=== PATIENT | female | born 1960 | race Caucasian/White ===

== ENCOUNTER 2016-12-28 17:15 | Emergency (ER) | payer SELFPAY ==
[2016-12-28 17:55] LABS: BASOPHILS 0.1 % (0-2); EOSINOPHILS 0.1 % (0-7); HEMATOCRIT 38.2 % (36.0-48.0); HEMOGLOBIN 12.9 g/dL (12-16); IMMATURE GRANULOCYTES 0.3 % (0-5); LYMPHOCYTES 11.4 % (15-50); MCH 33.1 pg (26.0-34.0); MCHC 33.8 g/dL (31.0-37.0); MCV 97.9 fL (80.0-100.0); MEAN PLATELET VOLUME 10.5 fL (7.4-10.4); MONOCYTES 3.5 % (2-11); NEUTROPHILS 84.6 % (40-80); PLATELET COUNT 321 10x3/uL (130-400); RDW 13.9 % (11.5-14.5); WBC 17.2 10x3/uL (4.8-10.8)
[2016-12-28 18:08] LABS: ALBUMIN 4.1 g/dL (3.4-5.0); ANION GAP 21.4 mmol/L (8-16); BILIRUBIN - TOTAL 0.37 mg/dL (0.2-1.3); CALCIUM 8.7 mg/dL (8.5-10.1); CARBON DIOXIDE 19.8 mmol/L (21.0-32.0); POTASSIUM - SERUM 3.2 mmol/L (3.5-5.1); PROTEIN - SERUM 7.7 g/dL (6.4-8.2)
[2016-12-28 18:55] LABS: APPEARANCE HAZY (CLEAR); BILIRUBIN NEGATIVE (NEGATIVE); COLOR YELLOW (YELLOW); GLUCOSE NEGATIVE (NEGATIVE); KETONE MODERATE mg/dL (NEGATIVE); NITRITE NEGATIVE (NEGATIVE); PROTEIN TRACE mg/dL (NEGATIVE); SPECIFIC GRAVITY 1.015 (1.005-1.020); UROBILINOGEN NORMAL (NORMAL)
[2016-12-28 19:07] LABS: BACTERIA MODERATE /hpf (NONE SEEN); GRANULAR CAST RARE /lpf (NONE SEEN); HYALINE CAST OCC /lpf (NONE SEEN); MUCUS >1+ /lpf (NONE SEEN); WHITE CELLS - URINE 0-5 /hpf (0-5)
[2017-01-12 16:21] VITALS: BMI 18.4
== END 2016-12-28 20:35 | disposition home or self-care (01) ==
LOC: D.ER 17:15
PROVIDERS: Family Medicine
DX: R11.10 Vomiting, unspecified (principal); N39.0 Urinary tract infection, site not specified; E86.0 Dehydration; F17.200 Nicotine dependence, unspecified, uncomplicated

== ENCOUNTER 2017-01-11 02:34 | Inpatient (IN) | payer SELFPAY ==
[~2017-01-11] VITALS: Ht 175.3 cm; Wt 56.2 kg
[2017-01-11 03:14] LABS: BASOPHILS 0 % (0-2); EOSINOPHILS 0 % (0-7); HEMATOCRIT 36.7 % (36.0-48.0); HEMOGLOBIN 12.4 g/dL (12-16); IMMATURE GRANULOCYTES 0.3 % (0-5); LYMPHOCYTES 1.4 % (15-50); MCH 32.7 pg (26.0-34.0); MCHC 33.8 g/dL (31.0-37.0); MCV 96.8 fL (80.0-100.0); MEAN PLATELET VOLUME 10.6 fL (7.4-10.4); MONOCYTES 3.1 % (2-11); NEUTROPHILS 95.2 % (40-80); PLATELET COUNT 314 10x3/uL (130-400); RBC 3.79 10x6/uL (4.00-5.40); RDW 14.4 % (11.5-14.5); WBC 15.9 10x3/uL (4.8-10.8)
[2017-01-11 03:19] LABS: APPEARANCE HAZY (CLEAR); BACTERIA FEW /hpf (NONE SEEN); BILIRUBIN 2+ (NEGATIVE); COLOR DK YELLOW (YELLOW); EPITHELIAL CELLS RARE /hpf (0-5); GLUCOSE NEGATIVE (NEGATIVE); KETONE MODERATE mg/dL (NEGATIVE); NITRITE NEGATIVE (NEGATIVE); PROTEIN TRACE mg/dL (NEGATIVE); RED CELLS - URINE NONE SEEN /hpf (0-5); SPECIFIC GRAVITY 1.015 (1.005-1.020); UDS - AMPHET NEGATIVE QUAL (NEGATIVE); UDS - BARB NEGATIVE QUAL (NEGATIVE); UDS - BENZO NEGATIVE QUAL (NEGATIVE); UDS - COCAINE NEGATIVE QUAL (NEGATIVE); UDS - OPIATE NEGATIVE QUAL (NEGATIVE); UDS - PCP NEGATIVE QUAL (NEGATIVE); UDS - THC POSITIVE QUAL (NEGATIVE); WHITE CELLS - URINE 0-5 /hpf (0-5)
[2017-01-11 03:19] LABS: ALBUMIN 3.2 g/dL (3.4-5.0); ALKALINE PHOSPHATASE 276 U/L (46-116); ALT (SGPT) 161 U/L (10-68); BILIRUBIN - TOTAL 0.86 mg/dL (0.2-1.3); CALC OSMOLALITY 281 mosm/kg (275-300); CALCIUM 8.7 mg/dL (8.5-10.1); CARBON DIOXIDE 24.2 mmol/L (21.0-32.0); CHLORIDE - SERUM 102 mmol/L (98-107); CREATININE - SERUM 0.9 mg/dL (0.6-1.3); GLUCOSE 132 mg/dL (74-106); PROTEIN - SERUM 6.1 g/dL (6.4-8.2); SODIUM 140 mmol/L (136-145); UREA NITROGEN 14 mg/dL (7-18); eGFR NON AFRICAN AMERICAN 69 mL/min (90-120)
[2017-01-11 03:29] LABS: CREATINE KINASE 49 UL (21-215); LIPASE 152 U/L (73-393); TROPONIN-I < 0.017 ng/mL (0.000-0.060)
[2017-01-11 04:48] LABS: C-REACTIVE PROTEIN 1.1 mg/dL (0.0-0.9)
[2017-01-11] MEDS ORDERED: CELEXA20 MG PO (05:43)
[2017-01-11] MEDS ORDERED: ESTRADERM 0.00.05 MG TD (05:44)
[2017-01-11 05:53] VITALS: BP 91/41; BMI 18.5
--- NOTE | 2017-01-11 07:46 | NUR ---
REC'D LYING IN BED RESTING. NO DISTRESS NOTED. FAMILY IS AT BEDSIDE. WILL ADMIN AM MEDS PRESCRIBED. WILL CONT TO MONITOR. BED LOW, LOCKED, CALL LIGHT IN REACH.
[2017-01-11 09:03] VITALS: BP 91/50
[2017-01-11 12:05] VITALS: BP 84/40
[2017-01-11 16:15] VITALS: BP 97/59
--- NOTE | 2017-01-11 17:49 | NUR ---
DID IN AND OUT CATH, TOLERATED WELL, SENT URINE TO LAB, AWAITING RESULTS.
[2017-01-11 21:07] VITALS: BP 120/52
[2017-01-11 23:49] VITALS: BP 79/35
--- NOTE | 2017-01-12 03:56 | NUR ---
PATIENT RESTING IN BED WITH EYES CLOSED AND NO VISIBLE SIGNS OF DISTRESS. BED IN LOWEST POSITION AND CALL LIGHT WITHIN REACH.
[2017-01-12 03:59] VITALS: BP 102/49
[2017-01-12 05:36] LABS: BASOPHILS 0.1 % (0-2); HEMATOCRIT 33.4 % (36.0-48.0); HEMOGLOBIN 11.1 g/dL (12-16); IMMATURE GRANULOCYTES 0.3 % (0-5); LYMPHOCYTES 9.7 % (15-50); MCH 32.5 pg (26.0-34.0); MCHC 33.2 g/dL (31.0-37.0); MCV 97.7 fL (80.0-100.0); MEAN PLATELET VOLUME 10.7 fL (7.4-10.4); NEUTROPHILS 82.9 % (40-80); PLATELET COUNT 305 10x3/uL (130-400); RBC 3.42 10x6/uL (4.00-5.40); RDW 15.2 % (11.5-14.5); WBC 18.9 10x3/uL (4.8-10.8)
[2017-01-12 06:05] LABS: ALKALINE PHOSPHATASE 249 U/L (46-116); BILIRUBIN - TOTAL 0.41 mg/dL (0.2-1.3); CALCIUM 7.5 mg/dL (8.5-10.1); CARBON DIOXIDE 25.2 mmol/L (21.0-32.0); CHLORIDE - SERUM 108 mmol/L (98-107); CREATININE - SERUM 0.7 mg/dL (0.6-1.3); PROTEIN - SERUM 5.2 g/dL (6.4-8.2); SODIUM 138 mmol/L (136-145); UREA NITROGEN 11 mg/dL (7-18); eGFR NON AFRICAN AMERICAN > 90 mL/min (90-120)
[2017-01-12 06:06] LABS: ALBUMIN 2.3 g/dL (3.4-5.0); ALT (SGPT) 202 U/L (10-68); CALC OSMOLALITY 272 mosm/kg (275-300); GLUCOSE 71 mg/dL (74-106); POTASSIUM - SERUM 4.1 mmol/L (3.5-5.1)
--- NOTE | 2017-01-12 07:20 | NUR ---
ASSESSMENT PER FLOW SHEET.PT IS WITHOUT DISTRESS.STATES SHE DOESNT UNDERSTAND HER LIVER ACTING UP WHEN SHE DOESNT DRINK. STATES SHE WILL TALK TO MD REGUARDING HER LABS.MONITOR FOR NEEDS
[2017-01-12 08:02] VITALS: BP 117/40
[2017-01-12 12:20] VITALS: BP 124/58
[2017-01-12 13:41] VITALS: BMI 18.4
--- NOTE | 2017-01-12 14:22 | NUR ---
Patient Name: PAN GOMES Admission Status: ER Accout number: [id number] Admission Date: 01-11-2017 : 1960 Admission Diagnosis: Attending: FELIX, Current LOS: 1 Anticipated DC Date: Planned Disposition: Home Primary Insurance: UNINSURED DISCOUNT PLAN Discharge Planning Comments: CM met with patient to assess discharge planning needs. Patient lives independently at home with her , mother, and son. Patient does not use any HH or DME. She is independent with her care at home. MD would like patient to be transferred to a hospital who has Plastics. CM called and spoke with Shun at [facility] . She will call me back. Patient stated that her original Plastic Surgeon was Manpreet Hilton and the surgery was done in [place] but he has since moved to [facility]. She has had a consultation by a Dr Marshall back in 2004. CM will be waiting on [facility] for transfer answer. PCP: Dewayne Graf on [address] [place] ()[phone] Currency Machine Operator: Siena Dobbs * Is the patient Alert and Oriented? Yes 0 * How many steps to enter\exit or inside your home? 0 0 * PCP Dewayne Nair 0 * Pharmacy [facility] [address] 0 * Preadmission Environment Home with Family 0 * ADLs Independent 0 * Equipment None 0 * List name and contact numbers for known caregivers / representatives who currently or will assist patient after discharge: [place] () [phone] * Community resources currently utilized None 0 * Additional services required to return to the preadmission environment? Yes 0 * Can the patient safely return to the preadmission environment? Yes 0 * Has this patient been hospitalized within the prior 30 days at any hospital? No 0 [place] Total: 0
--- NOTE | 2017-01-12 15:36 | NUR ---
IV RESITED TO LEFT FOREARM X1 STICK USING ASEPTIC TECH 22G. IV RIGHT AC TENDER WITH SLIGHT SWELLING NOTED.
[2017-01-12 16:21] VITALS: BP 126/73; Ht 175.3 cm; Wt 56.2 kg
[2017-01-12 20:00] VITALS: BP 129/55
--- NOTE | 2017-01-12 20:00 | NUR ---
ASSESSMENT PER FLOWSHEET. TOOK GALLON JUG OF NEW INTO PT'S ROOM. PATIENT STATES THAT SHE NOT SURE ABOUT THE COLOSCOPY TOMORROW BECAUSE SHE MIGHT BE TRANSFERED TO [facility] IN [place] FOR REMOVAL OF LEFT BREAST INPLANT. WANTS NURSE TO CALL DR. SO TO SEE IF COLOSTOMY COULD BE DONE AT A LATER TIME.
--- NOTE | 2017-01-12 20:30 | NUR ---
CALLED DR. SO. DR. ALCANTAR DISPATCHER SERVICE CHIEF EXPLAINED SITUATION AND WAS TOLD TO CALL PT'S PCP. SPOKE WITH MONTRELL AGUILAR. EXPLAINED SITUATION. PATIENT IS NOT GOING TO BE TRANSFERED TO [facility] TOMORROW AND PT NEEDS THE COLONSCOPY TOMORROW AND THE PREP TONIGHT.
--- NOTE | 2017-01-12 21:00 | NUR ---
EXPLAINED TO PATIENT AND HER WHAT EACH PERSON SAID AND THAT OF RIGHT NOW SHE WAS NOT GOING TO BE TRANSFERED TO [facility] IN [place] AND THE #1 PRIORITY WAS TO DO THE PREP AND COLONOSCOPY TOMORROW.
--- NOTE | 2017-01-12 21:30 | NUR ---
PT DRINKING GOLYTELY PREP SOLUTION.
--- NOTE | 2017-01-13 00:14 | NUR ---
PT DRANK 3/4 GALLON OF GOLYTELY SOLUTION. STOOLS ARE NOW YELLOW WATER NO FECAL MATTER.SPOUSE IN ROOM.
[2017-01-13 04:00] VITALS: BP 132/52
[2017-01-13 07:23] LABS: BASOPHILS 0.2 % (0-2); HEMATOCRIT 34.2 % (36.0-48.0); HEMOGLOBIN 11.4 g/dL (12-16); IMMATURE GRANULOCYTES 0.2 % (0-5); LYMPHOCYTES 23.7 % (15-50); MCH 32.4 pg (26.0-34.0); MCHC 33.3 g/dL (31.0-37.0); MCV 97.2 fL (80.0-100.0); MEAN PLATELET VOLUME 10.7 fL (7.4-10.4); MONOCYTES 8.2 % (2-11); NEUTROPHILS 65.7 % (40-80); PLATELET COUNT 313 10x3/uL (130-400); RBC 3.52 10x6/uL (4.00-5.40); RDW 14.7 % (11.5-14.5)
[2017-01-13 07:31] LABS: WBC 10.8 10x3/uL (4.8-10.8)
[2017-01-13 07:46] LABS: ALBUMIN 2.5 g/dL (3.4-5.0); BILIRUBIN - TOTAL 0.3 mg/dL (0.2-1.3); CALCIUM 8.1 mg/dL (8.5-10.1); CARBON DIOXIDE 26.3 mmol/L (21.0-32.0); POTASSIUM - SERUM 4.3 mmol/L (3.5-5.1); PROTEIN - SERUM 5.4 g/dL (6.4-8.2)
[2017-01-13 07:47] LABS: CREATININE - SERUM 1.1 mg/dL (0.6-1.3)
--- NOTE | 2017-01-13 08:00 | NUR ---
ASSESSMENT PER FLOW SHEET.PT WITHOUT DISTRESS.VERY ANXIOUS AND TEARFUL TJHIS AM. AT SIDE.MONITOR FOR NEEDS
[2017-01-13 08:41] VITALS: BP 123/60
--- NOTE | 2017-01-13 10:04 | NUR ---
SPOKE WITH EMMETT AT [facility] ABOUT PATIENT AND SHE STATED THAT DR AGUIRRE SPOKE WITH FABIO YING AND DECIDED THAT THEY WILL KEEP PATIENT HERE AT [facility].
[2017-01-13 10:20] LABS: HEPATITIS C ANTIBODY <0.1 (0.0-0.9)
[2017-01-13 11:55] VITALS: BP 120/51
--- NOTE | 2017-01-13 12:54 | NUR ---
TO GI LAB VIA BED
--- NOTE | 2017-01-13 15:03 | NUR ---
BACK FROM GI LAB VIA BED
[2017-01-13 15:34] VITALS: BP 122/58
--- NOTE | 2017-01-13 15:50 | NUR ---
MEDS ORDERED FOR NAUSEA AFTER PT BACK TO BED FROM SHOWER.
[2017-01-13 20:00] VITALS: BP 106/36
--- NOTE | 2017-01-13 20:19 | NUR ---
ASSESSMENT PER FLOWSHEET. C/O NAUSEA NO EMESIS SEEN. ZOFRAN 4MG IVP GIVEN FOR RELIEF OF NAUSEA. IV PATENT LEFT FOREARM OF NS W/20MEQ KCL INFUSING AT 125CC'S/HR. SPOUSE AT BEDSIDE.
[2017-01-13 21:07] LABS: EBV - EARLY ANTIGEN AB IGG <9.0 U/mL (0.0-8.9); EBV VIRAL CAPSID AB IGM <36.0 U/mL (0.0-35.9)
--- NOTE | 2017-01-13 22:00 | NUR ---
MEDS GIVEN PER MAR.
--- NOTE | 2017-01-13 23:04 | NUR ---
C/O NAUSEA. PHENERGAN 25MG IM GIVEN TO LEFT GLUTE FOR RELIFE OF NAUSEA NO EMESIS SEEN.
--- NOTE | 2017-01-14 | NUR ---
EYES CLOSED RESPIRATIONS WITH EASE AND UNLABORED SR UP X2 CALL LIGHT WITHIN REACH.
--- NOTE | 2017-01-14 03:00 | NUR ---
RESTING QUIETLY DENIES NEEDS.
[2017-01-14 04:00] VITALS: BP 125/45
--- NOTE | 2017-01-14 06:17 | NUR ---
NO CHANGES IN ASSESSMENT.
[2017-01-14 06:48] LABS: ALBUMIN 2.9 g/dL (3.4-5.0); ALKALINE PHOSPHATASE 244 U/L (46-116); ALT (SGPT) 118 U/L (10-68); BILIRUBIN - TOTAL 0.29 mg/dL (0.2-1.3); CALC OSMOLALITY 277 mosm/kg (275-300); CALCIUM 8.2 mg/dL (8.5-10.1); CARBON DIOXIDE 23.5 mmol/L (21.0-32.0); CHLORIDE - SERUM 103 mmol/L (98-107); CREATININE - SERUM 0.5 mg/dL (0.6-1.3); GLUCOSE 87 mg/dL (74-106); POTASSIUM - SERUM 4.3 mmol/L (3.5-5.1); PROTEIN - SERUM 6.2 g/dL (6.4-8.2); SODIUM 141 mmol/L (136-145); UREA NITROGEN 7 mg/dL (7-18); eGFR NON AFRICAN AMERICAN > 90 mL/min (90-120)
[2017-01-14 07:07] LABS: BASOPHILS 0.1 % (0-2); EOSINOPHILS 0 % (0-7); HEMATOCRIT 35.8 % (36.0-48.0); HEMOGLOBIN 12.1 g/dL (12-16); IMMATURE GRANULOCYTES 0.3 % (0-5); LYMPHOCYTES 18.7 % (15-50); MCH 32.4 pg (26.0-34.0); MCHC 33.8 g/dL (31.0-37.0); MEAN PLATELET VOLUME 11.1 fL (7.4-10.4); MONOCYTES 6.7 % (2-11); NEUTROPHILS 74.2 % (40-80); PLATELET COUNT 350 10x3/uL (130-400); RBC 3.73 10x6/uL (4.00-5.40); RDW 14.4 % (11.5-14.5); WBC 11.1 10x3/uL (4.8-10.8)
--- NOTE | 2017-01-14 08:58 | NUR ---
AWAKE AND ALERT. RESP EVEN AND UNLABORED WITH NO DISTRESS NOTED. CAN EXPRESS NEEDS AND WANTS. C/O LEFT BREAST PAIN RATING 6/10 ON PAIN SCALE. ASSESSMENT COMPLETED. C/L IN REACH AT BEDSIDE.
[2017-01-14 09:31] VITALS: BP 126/64
--- NOTE | 2017-01-14 09:36 | NUR ---
PT C/O NAUSEA WAS MEDICATED WITH ZOFRAN PER ORDERS AT THIS TIME. C/L IN REACH AT BEDSIDE.
--- NOTE | 2017-01-14 09:58 | NUR ---
CM SPOKE WITH STACIE AT [facility] ([phone]) FOR A PLACEMENT. AWAITING CALL
[2017-01-14 11:33] VITALS: BP 127/41
--- NOTE | 2017-01-14 13:25 | NUR ---
NUTRITION F/U CHART REVIEWED. FULL LIQUID DIET CANCELED. NURSING TO REORDER FULL LIQUID DIET. RD FOLLOWING
--- NOTE | 2017-01-14 15:00 | NUR ---
WE HAVE AN ACCEPTING PHYSICIAN AT [facility] DR BELTRAN. PATIENT IS PLACED ON THE WAIT LIST FOR BED.
[2017-01-14 16:34] VITALS: BP 107/42
--- NOTE | 2017-01-14 16:44 | NUR ---
CM REASSESSMENT NOTE: TRANSFER BACK AGREEMENT REC. AND FAXED BACK TO CAM GOEL AT [facility]. [place] NURSE AT [facility] HAS PAPERS TO SIGN AND SEND WITH AMBULANCE WHEN BED AVAILABLE. CM EXPLAINED TO GIVE TO ON COMING NURSE IF PATIENT HAS NOT TRANSFERRED AT END OF HER SHIFT.
[2017-01-14 20:00] VITALS: BP 126/81
[2017-01-15] VITALS: BP 128/89
--- NOTE | 2017-01-15 02:00 | NUR ---
ENTERED PATIENT'S ROOM, SHE IS SITTING UP ON THE SIDE OF THE BED, SHE STATED "I HAVE BEEN TRYING NOT TO BOTHER ANYONE, BUT I NEED SOMETHING FOR MY ANXIETY. IT HAS JUST BEEN GETTING WORSE AND WORSE AND I CAN HARDLY STAND IT, I AM STARTING TO SHAKE NOW. THEY SAID I AM GOING TO [facility], AND NOW I AM JUST WAITING, AND I DO NOT KNOW WHEN I GET THERE WHAT I AM HAVING SURGERY ON. ALL THIS HAS JUST GOT ME SO ANXIOUS I CAN'T STAND IT." CHECKED PATIENT'S ORDERS, NO ORDERS FOR ANXIETY MEDICINE. TOLD PATIENT I WILL LET HER NURSE KNOW. NOTIFIED PATIENT'S ASSIGNED NURSE SHERICE WILKES. SENT A PAGE TO MONTRELL BETANCOURT. CHUNG SPOKE WITH MONTRELL.
--- NOTE | 2017-01-15 02:30 | NUR ---
PT STATES SHE IS ANXIOUS, MONTRELL YING CALLED MELATONIN 6 MG OREDERED AND GIVEN, EXPLAINED TO PT WHAT WAS GOING ON AND SHE STATED SHE WAS FEELING BETTER NOW
[2017-01-15 04:00] VITALS: BP 128/79
[2017-01-15 06:17] LABS: BASOPHILS 0.2 % (0-2); EOSINOPHILS 1.8 % (0-7); HEMATOCRIT 35.5 % (36.0-48.0); HEMOGLOBIN 11.9 g/dL (12-16); IMMATURE GRANULOCYTES 0.2 % (0-5); LYMPHOCYTES 40.5 % (15-50); MCH 32.3 pg (26.0-34.0); MCHC 33.5 g/dL (31.0-37.0); MCV 96.5 fL (80.0-100.0); MEAN PLATELET VOLUME 10.7 fL (7.4-10.4); MONOCYTES 9.1 % (2-11); NEUTROPHILS 48.2 % (40-80); PLATELET COUNT 345 10x3/uL (130-400); RBC 3.68 10x6/uL (4.00-5.40); RDW 14.6 % (11.5-14.5); WBC 8.7 10x3/uL (4.8-10.8)
[2017-01-15 07:05] LABS: ALBUMIN 2.7 g/dL (3.4-5.0); ANION GAP 14.6 mmol/L (8-16); BILIRUBIN - TOTAL 0.38 mg/dL (0.2-1.3); CALCIUM 8.2 mg/dL (8.5-10.1); CARBON DIOXIDE 25.1 mmol/L (21.0-32.0); POTASSIUM - SERUM 3.7 mmol/L (3.5-5.1); PROTEIN - SERUM 6.1 g/dL (6.4-8.2)
[2017-01-15 07:08] LABS: CREATININE - SERUM 1.1 mg/dL (0.6-1.3)
[2017-01-15 07:58] VITALS: BP 105/46
--- NOTE | 2017-01-15 08:05 | NUR ---
SLEEPING AT THIS TIME WITH RESPIRATIONS EVEN AND NON LABORED. REMAINS NPO. CALL LIGHT IN REACH, WILL CONTINUE WITH PLAN OF CARE.
--- NOTE | 2017-01-15 12:31 | NUR ---
PRE OPERATIVE MEDICATIONS ADMINISTERED AT THIS TIME.
[2017-01-15 14:58] LABS: NEUT - BF 13 %
[2017-01-15 14:59] LABS: MACROPHAGES BF 26 %
[2017-01-15 15:15] VITALS: BP 141/68
--- NOTE | 2017-01-15 17:43 | OP ---
PATIENT NAME: PAN GOMES MEDICAL RECORD: [id number] :[birth year] LOCATION:[id number] ADMISSION DATE:01/11/17 SURGEON: YULIET MARIE MD DATE OF OPERATION: 01/15/2017 SURGEON: Yuliet Marie MD PREOPERATIVE DIAGNOSIS: Rectal mass. POSTOPERATIVE DIAGNOSIS: Rectal mass. PROCEDURE PERFORMED: Transanal excision of rectal mass. SPECIMENS: Rectal mass, 3 x 3 x 3 cm. ANESTHESIA: General. COMPLICATIONS: None. Case was contaminated. OPERATIVE COURSE: After consent was obtained, the patient was taken to the operating room and placed in supine position on the operating table. Next, general anesthesia was given via endotracheal intubation after a timeout was performed to confirm the correct patient and procedure. The patient was then placed in lithotomy position. The perineum was prepped and draped in typical sterile fashion, 20 cc of local anesthetic was injected circumferentially in a perineal block. Digital rectal exam was performed. The mass was identified approximately 10 cm, the rectum was serially dilated using [place] retractors. The stalk of the rectal mass was grasped with the Allis and once the stalk was grasped, a Cari was placed across the mucosa and the specimen was transected using Metzenbaum scissors and sent for permanent pathology. The mucosa was tied off using two 2-0 Vicryl sutures. There was no bleeding. The mucosa was reduced back into the rectum and passed was packed with a Americaine Gelfoam. At the end of procedure, all needle, and sponge counts were correct. No complications occurred. The patient was extubated and transferred to the PACU in stable condition. TRANSINT:[id number] Voice Confirmation ID: [id number] DOCUMENT ID: [id number] YULIET MARIE MD at 1743 CC: [id number] DICTATION DATE: 01/15/17 1430 FILM COMPOSER: 01/15/17 1613 ADM IN [place] [id number] [place] [id number]
--- NOTE | 2017-01-15 19:30 | NUR ---
A&O, DENIES NEEDS, BED LOWEST POSITION, CALL LIGHTIN REACH, ASSESSMENT COMPLETE, WILL CONTINUE TO MONITOR
[2017-01-15 20:00] VITALS: BP 120/55
--- NOTE | 2017-01-15 20:30 | NUR ---
PT COMPLAINS OF PAIN, NO PAIN MEDS ORDERED, PAGED DR JEFFREY, HE RETURNED CALL AND ORDERED DILAUDID 1MG Q4P,
--- NOTE | 2017-01-15 23:30 | NUR ---
WALKED AROUND HOSPITAL WITH , NO COMPLAINTS
[2017-01-16 04:00] VITALS: BP 114/54
--- NOTE | 2017-01-16 04:30 | NUR ---
PT LYING IN BED AWAKE. UP TO BATHROOM TO HAVE BM. C/O PAIN. INFORMED WATER SKI ASSEMBLER OF PT'S PAIN. NO OTHER NEEDS. CONTINUE WATER SKI ASSEMBLER'S PLAN OF CARE.
--- NOTE | 2017-01-16 04:42 | NUR ---
HAVING SOME PAIN, DILAUDID GIVEN.
[2017-01-16 05:40] LABS: BASOPHILS 0.2 % (0-2); EOSINOPHILS 0.3 % (0-7); HEMATOCRIT 35.7 % (36.0-48.0); IMMATURE GRANULOCYTES 0.2 % (0-5); LYMPHOCYTES 31.1 % (15-50); MCH 32.3 pg (26.0-34.0); MCHC 33.6 g/dL (31.0-37.0); MEAN PLATELET VOLUME 10.6 fL (7.4-10.4); MONOCYTES 9.3 % (2-11); NEUTROPHILS 58.9 % (40-80); PLATELET COUNT 360 10x3/uL (130-400); RBC 3.72 10x6/uL (4.00-5.40)
[2017-01-16 05:55] LABS: ALBUMIN 2.7 g/dL (3.4-5.0); ALKALINE PHOSPHATASE 181 U/L (46-116); ALT (SGPT) 60 U/L (10-68); BILIRUBIN - TOTAL 0.33 mg/dL (0.2-1.3); CALC OSMOLALITY 283 mosm/kg (275-300); CALCIUM 8.1 mg/dL (8.5-10.1); CARBON DIOXIDE 26.8 mmol/L (21.0-32.0); CHLORIDE - SERUM 107 mmol/L (98-107); GLUCOSE 93 mg/dL (74-106); POTASSIUM - SERUM 3.5 mmol/L (3.5-5.1); PROTEIN - SERUM 6.2 g/dL (6.4-8.2); SODIUM 143 mmol/L (136-145); UREA NITROGEN 9 mg/dL (7-18)
[2017-01-16 05:57] LABS: CREATININE - SERUM 0.7 mg/dL (0.6-1.3); eGFR NON AFRICAN AMERICAN > 90 mL/min (90-120)
--- NOTE | 2017-01-16 06:24 | NUR ---
[facility] CALLED TO CHECK ON PT, THEY STATED IF PT IS DISCHARGED TODAY TO PLEASE CALL THEM BACK AT [phone] TO NOTIFY OF DC IF NOT PT WOULD REMAIN ON TRANSFER LIST
--- NOTE | 2017-01-16 07:30 | NUR ---
ASSESSMENT PER FLOW SHEET.PT WITHOUT DISTRESS.TOLERATING REG DIET.DENIES NEEDS.CALL LIGHT IN REACH
[2017-01-16 08:10] VITALS: BP 119/60
--- NOTE | 2017-01-16 11:56 | NUR ---
SLEEPING INT ON RIGHT SIDE. DENIES NEEDS
[2017-01-16 12:53] VITALS: BP 105/44
--- NOTE | 2017-01-16 14:52 | NUR ---
AMBULATING IN HALLS WITH .REMAINS WITHOUT NEEDS
[2017-01-16 15:50] VITALS: BP 109/44
[2017-01-16 20:00] VITALS: BP 115/42
[2017-01-17] VITALS: BP 108/33
[2017-01-17 04:00] VITALS: BP 116/47
[2017-01-17 05:34] LABS: BASOPHILS 0.4 % (0-2); HEMATOCRIT 35.6 % (36.0-48.0); HEMOGLOBIN 11.8 g/dL (12-16); IMMATURE GRANULOCYTES 0.1 % (0-5); LYMPHOCYTES 45.6 % (15-50); MCH 32.1 pg (26.0-34.0); MCHC 33.1 g/dL (31.0-37.0); MCV 96.7 fL (80.0-100.0); MEAN PLATELET VOLUME 10.5 fL (7.4-10.4); MONOCYTES 8.7 % (2-11); NEUTROPHILS 42.2 % (40-80); PLATELET COUNT 340 10x3/uL (130-400); RBC 3.68 10x6/uL (4.00-5.40); WBC 7.9 10x3/uL (4.8-10.8)
[2017-01-17 05:54] LABS: ALBUMIN 2.6 g/dL (3.4-5.0); ALKALINE PHOSPHATASE 154 U/L (46-116); ALT (SGPT) 47 U/L (10-68); CALC OSMOLALITY 280 mosm/kg (275-300); CALCIUM 8.2 mg/dL (8.5-10.1); CARBON DIOXIDE 30.7 mmol/L (21.0-32.0); CHLORIDE - SERUM 107 mmol/L (98-107); CREATININE - SERUM 0.7 mg/dL (0.6-1.3); GLUCOSE 83 mg/dL (74-106); POTASSIUM - SERUM 3.7 mmol/L (3.5-5.1); PROTEIN - SERUM 5.7 g/dL (6.4-8.2); SODIUM 142 mmol/L (136-145); UREA NITROGEN 11 mg/dL (7-18); eGFR NON AFRICAN AMERICAN > 90 mL/min (90-120)
--- NOTE | 2017-01-17 08:00 | NUR ---
ASSESSMENT PER FLOW SHEET.PT WITHOUT DISTRESS.CALL LIGHT IN REACH
[2017-01-17 08:45] VITALS: BP 126/50
--- NOTE | 2017-01-17 12:00 | NUR ---
AMBULATED IN HALLS WITH .
[2017-01-17 13:33] VITALS: BP 110/43
[2017-01-17] MEDS ORDERED: VIBRAMYCIN 100100 MG PO (14:11)
--- NOTE | 2017-01-17 14:56 | NUR ---
DISCHARGE INSTRUCTIONS,STATES UNDERSTANDING. IV DCD WITH CATH TIP INTACT.
--- NOTE | 2017-01-17 15:17 | NUR ---
LEFT UNIT WITH FOR TRANSPORT HOME.DECLINED WHEELCHAIR.
--- NOTE | 2017-02-20 12:26 | DS ---
PATIENT:PAN GOMES :64 MEDICAL RECORD: [id number] DISCHARGE SUMMARY ADMISSION DATE: 01/11/17 DISCHARGE DATE: 01/17/17 ADMISSION DATE: 01/11/2017. DISCHARGE DATE: 01/17/2017. DIAGNOSES: 1. Leukocytosis. 2. Ruptured breast implant. 3. Elevated liver enzymes. 4. Rectal mass. 5. Abdominal pain. 6. Nausea and vomiting. CONSULTS: 1. Dr. Castellano. 2. GI. IMAGES AND STUDIES: 1. Ultrasound of the left breast with needle aspirate, successful ultrasound-guided left breast aspirate, cytology, cell, and cultures pending. 2. MRI of the chest with and without contrast shows both internal and external rupture of the left breast implant with surrounding increased peripheral effacement consistent with infectious or inflammatory process. 3. CT of the abdomen and pelvis, which shows a 3.3 cm enhancing rectal mass concerning for malignancy. There was colonic diverticulitis and rupture of left breast implant. HOSPITAL COURSE: The full H&P is listed elsewhere in the chart for this patient who was admitted with nausea, vomiting, fever, breast pain. She was placed in the inpatient setting and several consultations were obtained. She underwent IV antibiotic therapy, antiemetics, and pain control. After several diagnostic tests, it was confirmed that the patient did have ruptured internal and external left breast implant and there was also a possible rectal mass. She was transferred to high level of care with a plastic surgeon that was accepted at [facility] by Dr. Lopez. She was in stable condition at the time of transfer. TRANSINT:[id number] Voice Confirmation ID: [id number] DOCUMENT ID: [id number] Dictated By: MELITON MACARIO I have interviewed/examined the above patient and agree with these documented findings. EBENEZER STRICKLAND MD at 1226 at 1433 CC: [id number] DICTATION DATE: 02/11/17 1728 MAJOR LEAGUE BASEBALL PLAYER: 02/12/17 1019 DIS IN 01/17/17 [place] [id number] [place] [address]
== END 2017-01-17 15:17 | disposition home or self-care (01) | DRG 908 ==
LOC: D.ER 02:34 → D.MS 04:32
PROVIDERS: Emergency Medicine; Family Medicine; Internal Medicine Gastroenterology; Surgery; ADMIT Family Medicine
PROC: 0DB68ZX Excision of Stomach, Via Natural or Artificial Opening Endoscopic, Diagnostic (ICD-10-PCS; 2017-01-13)
PROC: 0DBN8ZZ Excision of Sigmoid Colon, Via Natural or Artificial Opening Endoscopic (ICD-10-PCS; 2017-01-13)
PROC: 0DBP8ZZ Excision of Rectum, Via Natural or Artificial Opening Endoscopic (ICD-10-PCS; 2017-01-13)
PROC: 0H9U3ZZ Drainage of Left Breast, Percutaneous Approach (ICD-10-PCS; principal; 2017-01-15 11:15)
PROC: 0DBP0ZZ Excision of Rectum, Open Approach (ICD-10-PCS; 2017-01-15 11:15)
DX: T85.79XA Infection and inflammatory reaction due to other internal prosthetic devices, implants and grafts, initial encounter (principal); T85.49XA Other mechanical complication of breast prosthesis and implant, initial encounter; F17.203 Nicotine dependence unspecified, with withdrawal; E87.6 Hypokalemia; K62.1 Rectal polyp; F12.90 Cannabis use, unspecified, uncomplicated; N64.4 Mastodynia; K29.70 Gastritis, unspecified, without bleeding; K44.9 Diaphragmatic hernia without obstruction or gangrene; K57.30 Diverticulosis of large intestine without perforation or abscess without bleeding